=== PATIENT | female | born 1955 | race Caucasian/White ===

== ENCOUNTER → 2018-06-19 | Outpatient (CLI) | payer OTHER | END | disposition home or self-care (01) | LOC: LAB SHORT 14:30 → LAB 14:30 | DX: N39.0 Urinary tract infection, site not specified (principal) | CPT/HCPCS: 87077; 87086; 87186 ==

== ENCOUNTER 2018-08-11 09:18 | Emergency (ER) | payer OTHER ==
[~2018-08-11] VITALS: Ht 170.2 cm; Wt 72.6 kg
[2018-08-11] MEDS ORDERED: GLIM4 PO (09:43)
[2018-08-11] MEDS ORDERED: METF500C PO (09:43)
[2018-08-11] MEDS ORDERED: PRAV20 PO (09:43)
[2018-08-11] MEDS ORDERED: DIAZ10 PO (09:44)
[2018-08-11] MEDS ORDERED: TRIM100 PO (09:44)
[2018-08-11] MEDS ORDERED: INSULANPEN SC (09:44)
== END 2018-08-11 11:18 | disposition home or self-care (01) ==
LOC: ER 09:18
DX: R29.898 Other symptoms and signs involving the musculoskeletal system (principal); Z79.899 Other long term (current) drug therapy; Z79.4 Long term (current) use of insulin
CPT/HCPCS: 36415; 96360; 99283-25; J7030

== ENCOUNTER → 2019-05-17 | Outpatient (CLI) | payer OTHER ==
[~2019-05-17] MED LIST: DIAZ10 PO; GLIM4 PO; INSULANPEN SC; METF500C PO; PRAV20 PO; TRIM100 PO
[2019-05-17 16:32] LABS: Appearance, Urine Hazy (Clear); Bilirubin, Urine Neg (Neg); Blood, Urine 2+ (Neg); Color, Urine Yellow (P-Yellow); Glucose Qualitative, Urine Neg (Neg); Ketones, Urine 3+ (Neg); Leukocyte Esterase, Urine 3+ (Neg); Nitrite, Urine Neg (Neg); Protein, Urine 1+ (Neg); Specific Gravity, Urine 1.025 (1.003-1.022); Urobilinogen, Urine NORM (Normal)
[2019-05-17 16:56] LABS: White Blood Cells, Urine 50-100 /hpf (0-5)
[2019-05-17 16:58] LABS: Bacteria Mod /hpf; Red Blood Cells, Urine Not Seen /hpf (0-2); Squamous Epithelial Cells Few /hpf (Few); Yeast/Fungi Urine Many /hpf
== END | disposition home or self-care (01) ==
LOC: LAB SHORT 13:00 → OLS 13:00
PROVIDERS: Family Medicine
DX: R39.15 Urgency of urination (principal)
CPT/HCPCS: 81001; 87086; 87106

== ENCOUNTER 2019-06-07 09:23 | Emergency (ER) | payer OTHER ==
[~2019-06-07] VITALS: Ht 170.2 cm; Wt 68.0 kg
[2019-06-07 09:50] LABS: BASOPHILS ABSOLUTE AUTO 0.03 K/mm3 (0.00-0.23); BASOPHILS PERCENT AUTO 1 % (0-2); EOSINOPHILS ABSOLUTE AUTO 0.14 K/mm3 (0.00-0.68); EOSINOPHILS PERCENT AUTO 4 % (0-6); Hematocrit 34.8 % (33.0-51.0); Hemoglobin 11.8 g/dL (11.5-16.0); IMMATURE GRAN ABSOLUTE AUTO 0.01 K/mm3 (0.00-0.10); IMMATURE GRAN PERCENT AUTO 0 % (0-1); LYMPHOCYTES ABSOLUTE AUTO 1.96 K/mm3 (0.84-5.20); LYMPHOCYTES PERCENT AUTO 50 % (21-46); MONOCYTES ABSOLUTE AUTO 0.23 K/mm3 (0.16-1.47); MONOCYTES PERCENT AUTO 6 % (4-13); Mean Corpuscular HGB 33.4 pg (26.0-34.0); Mean Corpuscular HGB Conc 33.9 g/dL (31.5-36.5); Mean Corpuscular Volume 99 fL (80-100); Mean Platelet Volume 9.8 fL (9.1-12.4); NEUTROPHILS ABSOLUTE AUTO 1.54 K/mm3 (1.96-9.15); NEUTROPHILS PERCENT AUTO 39 % (41-73); Platelet Count 281 K/mm3 (150-400); RDW Coefficient Variation 12.8 % (11.7-14.2); RDW Standard Deviation 45.9 fL (35.1-46.3); Red Blood Cell Count 3.53 M/mm3 (3.80-5.20); White Blood Cell Count 3.91 K/mm3 (4.00-11.30)
[2019-06-07 10:00] LABS: Alanine Aminotransfer (ALT/SGP 10 U/L (12-78); Albumin, Blood 3.6 g/dL (3.4-5.0); Albumin/Globulin Ratio 1.3 (0.8-1.8); Alk Phos 92 U/L (50-136); Anion Gap 8 mmol/L (6-16); Aspartate Aminotrans (AST/SGOT 18 U/L (12-37); Bilirubin, Total 0.7 mg/dL (0.1-1.0); Blood Urea Nitrogen 10 mg/dL (8-24); Bun/Creatinine Ratio 15.6 (12.0-20.0); CO2, Blood 27 mmol/L (21-32); Calcium, Blood 8.4 mg/dL (8.5-10.1); Chloride, Blood 96 mmol/L (98-108); Creatinine, Blood 0.64 mg/dL (0.40-1.00); Globulin, Blood 2.7 g/dL (2.2-4.0); Glomerular Filtration Rate >60 (60-); Glucose, Blood 167 mg/dL (70-99); Potassium, Blood 3.5 mmol/L (3.5-5.5); Sodium, Blood 131 mmol/L (136-145); Total Protein, Blood 6.3 g/dL (6.4-8.2)
== END 2019-06-07 12:27 | disposition home or self-care (01) ==
LOC: ER 09:23
PROVIDERS: Emergency Medicine
DX: E11.9 Type 2 diabetes mellitus without complications (principal); G20 Parkinson's disease; R55 Syncope and collapse; Z87.440 Personal history of urinary (tract) infections; Z88.5 Allergy status to narcotic agent; Z79.899 Other long term (current) drug therapy; Z79.4 Long term (current) use of insulin
CPT/HCPCS: 36415; 71045; 80053; 85025; 93005; 93010; 96360; 96361; 99284-25; J7030

== ENCOUNTER → 2019-07-31 | Outpatient (CLI) | payer OTHER ==
[2019-07-31 11:23] LABS: Appearance, Urine Clear (Clear); Bilirubin, Urine Neg (Neg); Blood, Urine Neg (Neg); Color, Urine Yellow (P-Yellow); Glucose Qualitative, Urine 1+ (Neg); Ketones, Urine 3+ (Neg); Leukocyte Esterase, Urine 1+ (Neg); Nitrite, Urine Neg (Neg); Protein, Urine 1+ (Neg); Urobilinogen, Urine 1+ (Normal)
[2019-07-31 11:37] LABS: Bacteria Few /hpf; Red Blood Cells, Urine 0-2 /hpf (0-2); Squamous Epithelial Cells Rare /hpf (Few)
[2019-07-31 11:38] LABS: Mucus Light (0-Heavy); Transitional Epithelial Cells Rare /hpf (0-Rare)
== END | disposition home or self-care (01) ==
LOC: LAB SHORT 10:15 → OLS 10:15 → LAB FUT 07-28 17:15
PROVIDERS: Family Medicine
DX: R33.9 Retention of urine, unspecified (principal)
CPT/HCPCS: 81001; 87077; 87086; 87186

== ENCOUNTER 2021-01-01 07:12 | Day surgery (SDC) | payer OTHER ==
[~2021-01-01] VITALS: Ht 170.2 cm; Wt 58.3 kg
[~2021-01-01 07:12] MED LIST changes: +CARBIDOPA LEVO
--- NOTE | 2021-01-01 07:26 | NUR ---
01/01/21 0726 Anayeli Milton CHARTED BY EDILIA MCNALLY RN
[2021-01-07] MEDS ORDERED: Doxycycline Mo100 M1 PO (08:12)
[2021-01-07] MEDS ORDERED: FLUDROCORTISON0.1 M1 PO (08:12)
[2021-01-07] MEDS ORDERED: ATOR40TA PO (08:13)
[2021-01-07] MEDS ORDERED: CARBIDOPA LEVO PO (08:14)
[2021-01-07] MEDS ORDERED: GABA300 PO (08:15)
[2021-01-07] MEDS ORDERED: INSULANI (08:15)
[2021-01-07] MEDS ORDERED: METF500 PO (08:16)
== END 2021-01-01 09:09 | disposition home or self-care (01) ==
LOC: ORSCSDS 07:12
PROVIDERS: Ophthalmology
PROC: 08RK3JZ Replacement of Left Lens with Synthetic Substitute, Percutaneous Approach (ICD-10-PCS; principal; 2021-01-01 08:30)
DX: H25.12 Age-related nuclear cataract, left eye (principal); I10 Essential (primary) hypertension; E78.5 Hyperlipidemia, unspecified; E11.9 Type 2 diabetes mellitus without complications; G20 Parkinson's disease; Z79.4 Long term (current) use of insulin; Z79.899 Other long term (current) drug therapy
CPT/HCPCS: 82947; A9270; J2001; J2250; J3010; J3301; J7040; V2632

== ENCOUNTER 2021-01-15 06:47 | Day surgery (SDC) | payer OTHER ==
[~2021-01-15] VITALS: Ht 170.2 cm; Wt 58.5 kg
[~2021-01-15 06:47] MED LIST changes: +ATOR40TA PO; +CARBIDOPA LEVO PO; +Doxycycline Mo100 M1 PO; +FLUDROCORTISON0.1 M1 PO; +GABA300 PO; +INSULANI; +METF500 PO
--- NOTE | 2021-01-15 07:07 | NUR ---
01/15/21 0707 Anayeli Milton TETRACAINE DROP PLACED IN RIGHT EYE BY [facility].TMG AT 0707.
== END 2021-01-15 08:49 | disposition home or self-care (01) ==
LOC: ORSCSDS 06:47
PROVIDERS: Ophthalmology
PROC: 08RJ3JZ Replacement of Right Lens with Synthetic Substitute, Percutaneous Approach (ICD-10-PCS; principal; 2021-01-15 08:00)
DX: H25.11 Age-related nuclear cataract, right eye (principal); E11.9 Type 2 diabetes mellitus without complications; G20 Parkinson's disease; Z79.4 Long term (current) use of insulin; Z79.899 Other long term (current) drug therapy
CPT/HCPCS: 82947; J2001; J2250; J3010; J3301; J7040; V2632

== ENCOUNTER → 2021-04-01 | Outpatient (CLI) | payer OTHER ==
[2021-04-02 09:58] LABS: Stool Occult Bld Immuno 1 Positive (NEGATIVE)
== END | disposition home or self-care (01) ==
LOC: LAB 13:00 → LAB SHORT 13:00
PROVIDERS: Family Medicine
DX: Z12.11 Encounter for screening for malignant neoplasm of colon (principal)
CPT/HCPCS: 82274

== ENCOUNTER 2021-05-18 07:18 | Day surgery (SDC) | payer OTHER ==
[~2021-05-18] VITALS: Ht 167.6 cm; Wt 56.2 kg
--- NOTE | 2021-05-18 10:41 | NUR ---
05/18/[address] REQUESTED FOR PT'S TO COME BACK TO ROOM SO HE COULD SPEAK TO BOTH OF THEM. DOUGLAS TO ROOM, SPOKE TO BOTH PT AND . QUESTIONS ANSWERED, DISCHARGE INSTRUCTIONS REVIEWED WITH PT AND . NO FURTHER QUESTIONS. IV REMOVED. PT DISCHARGED VIA WC TO WAITING CAR.
== END 2021-05-18 10:12 | disposition home or self-care (01) ==
LOC: ORSCSDS 07:18
PROVIDERS: Student in an Organized Health Care Education/Training Program
PROC: 0DBP8ZX Excision of Rectum, Via Natural or Artificial Opening Endoscopic, Diagnostic (ICD-10-PCS; principal; 2021-05-18 08:45)
PROC: 0DB98ZX Excision of Duodenum, Via Natural or Artificial Opening Endoscopic, Diagnostic (ICD-10-PCS; principal; 2021-05-18 08:45)
PROC: 0DB48ZX Excision of Esophagogastric Junction, Via Natural or Artificial Opening Endoscopic, Diagnostic (ICD-10-PCS; principal; 2021-05-18 08:45)
PROC: 0DBN8ZX Excision of Sigmoid Colon, Via Natural or Artificial Opening Endoscopic, Diagnostic (ICD-10-PCS; principal; 2021-05-18 08:45)
PROC: 0DB78ZX Excision of Stomach, Pylorus, Via Natural or Artificial Opening Endoscopic, Diagnostic (ICD-10-PCS; principal; 2021-05-18 08:45)
PROC: 3E0H8KZ Introduction of Other Diagnostic Substance into Lower GI, Via Natural or Artificial Opening Endoscopic (ICD-10-PCS; principal; 2021-05-18 08:45)
DX: K92.1 Melena (principal); D50.9 Iron deficiency anemia, unspecified; C20 Malignant neoplasm of rectum; D12.5 Benign neoplasm of sigmoid colon; K31.7 Polyp of stomach and duodenum; K29.70 Gastritis, unspecified, without bleeding; K64.4 Residual hemorrhoidal skin tags; E11.9 Type 2 diabetes mellitus without complications; G20 Parkinson's disease; H81.12 Benign paroxysmal vertigo, left ear; E78.5 Hyperlipidemia, unspecified; Z79.84 Long term (current) use of oral hypoglycemic drugs; Z79.4 Long term (current) use of insulin; Z79.899 Other long term (current) drug therapy
CPT/HCPCS: 82947; 88305; 88313; 88342; J2704; J7120

== ENCOUNTER 2021-07-20 11:12 | Emergency (ER) | payer OTHER ==
[~2021-07-20] VITALS: Ht 167.6 cm; Wt 47.6 kg
[2021-07-20] MEDS ORDERED: CARBLEV25 SL (12:17)
[2021-07-20] MEDS ORDERED: Aspir 8181 MG PO (12:18)
[2021-07-20 12:21] LABS: BASOPHILS ABSOLUTE AUTO 0.06 K/mm3 (0.00-0.23); BASOPHILS PERCENT AUTO 1 % (0-2); EOSINOPHILS ABSOLUTE AUTO 0.06 K/mm3 (0.00-0.68); EOSINOPHILS PERCENT AUTO 1 % (0-6); Hematocrit 39.9 % (33.0-51.0); Hemoglobin 13.2 g/dL (11.5-16.0); IMMATURE GRAN ABSOLUTE AUTO 0.03 K/mm3 (0.00-0.10); IMMATURE GRAN PERCENT AUTO 1 % (0-1); LYMPHOCYTES ABSOLUTE AUTO 1.58 K/mm3 (0.84-5.20); LYMPHOCYTES PERCENT AUTO 24 % (21-46); MONOCYTES ABSOLUTE AUTO 0.39 K/mm3 (0.16-1.47); MONOCYTES PERCENT AUTO 6 % (4-13); Mean Corpuscular HGB 27.4 pg (26.0-34.0); Mean Corpuscular HGB Conc 33.1 g/dL (31.5-36.5); Mean Corpuscular Volume 83 fL (80-100); Mean Platelet Volume 9.3 fL (9.1-12.4); NEUTROPHILS ABSOLUTE AUTO 4.38 K/mm3 (1.96-9.15); NEUTROPHILS PERCENT AUTO 67 % (41-73); Platelet Count 404 K/mm3 (150-400); RDW Coefficient Variation 14.1 % (11.7-14.2); RDW Standard Deviation 42.8 fL (35.1-46.3); Red Blood Cell Count 4.81 M/mm3 (3.80-5.20)
[2021-07-20 12:48] LABS: Alanine Aminotransfer (ALT/SGP 10 U/L (12-78); Albumin, Blood 4.1 g/dL (3.4-5.0); Alk Phos 116 U/L (50-136); Anion Gap 12 mmol/L (6-16); Aspartate Aminotrans (AST/SGOT 18 U/L (12-37); Bilirubin, Total 0.8 mg/dL (0.1-1.0); Blood Urea Nitrogen 30 mg/dL (8-24); Bun/Creatinine Ratio 35.6 (12.0-20.0); CO2, Blood 20 mmol/L (21-32); Calcium, Blood 9.9 mg/dL (8.5-10.1); Chloride, Blood 100 mmol/L (98-108); Creatinine, Blood 0.84 mg/dL (0.40-1.00); Globulin, Blood 4.2 g/dL (2.2-4.0); Glomerular Filtration Rate >60 (60-); Glucose, Blood 212 mg/dL (70-99); Potassium, Blood 4.3 mmol/L (3.5-5.5); Sodium, Blood 132 mmol/L (136-145); Total Protein, Blood 8.3 g/dL (6.4-8.2); Troponin I <0.015 ng/mL (0.000-0.040)
== END 2021-07-20 14:48 | disposition home or self-care (01) ==
LOC: ER 11:12
PROVIDERS: Student in an Organized Health Care Education/Training Program
DX: E86.0 Dehydration (principal); R06.00 Dyspnea, unspecified; I95.1 Orthostatic hypotension; Z88.5 Allergy status to narcotic agent; Z79.84 Long term (current) use of oral hypoglycemic drugs; Z79.82 Long term (current) use of aspirin; Z79.4 Long term (current) use of insulin; Z79.899 Other long term (current) drug therapy; E11.9 Type 2 diabetes mellitus without complications; G20 Parkinson's disease; Z90.49 Acquired absence of other specified parts of digestive tract
CPT/HCPCS: 36415; 71045; 80053; 84484; 85025; 93005; 93010; 99285-25

== ENCOUNTER → 2021-09-15 | Outpatient (CLI) | payer OTHER ==
[~2021-09-15] MED LIST changes: +Aspir 8181 MG PO; +CARBLEV25 SL; +FOSAMAX70 MG PO; +MIDO5 PO
[2021-09-15 12:11] LABS: Microalb/Creat Ratio UR, Rand Unable to Calculate mg/g (0.000-30.000); Microalbumin, Random Urine <5.000 mg/L (0.000-20.000)
== END | disposition home or self-care (01) ==
LOC: LAB SHORT 04:30 → LAB 04:30
PROVIDERS: Family Medicine
DX: E11.9 Type 2 diabetes mellitus without complications (principal); E78.5 Hyperlipidemia, unspecified; D50.9 Iron deficiency anemia, unspecified
CPT/HCPCS: 82043; 82570

== ENCOUNTER 2021-09-17 13:54 | Inpatient (IN) | payer OTHER ==
[~2021-09-17] VITALS: Ht 167.6 cm; Wt 57.1 kg
[~2021-09-17 13:54] MED LIST changes: -FOSAMAX70 MG PO; -MIDO5 PO
[2021-09-17 14:35] LABS: BASOPHILS ABSOLUTE AUTO 0.02 K/mm3 (0.00-0.23); BASOPHILS PERCENT AUTO 0 % (0-2); EOSINOPHILS ABSOLUTE AUTO 0.02 K/mm3 (0.00-0.68); EOSINOPHILS PERCENT AUTO 0 % (0-6); Hematocrit 32.3 % (33.0-51.0); Hemoglobin 10.3 g/dL (11.5-16.0); IMMATURE GRAN ABSOLUTE AUTO 0.02 K/mm3 (0.00-0.10); IMMATURE GRAN PERCENT AUTO 0 % (0-1); LYMPHOCYTES ABSOLUTE AUTO 1.27 K/mm3 (0.84-5.20); LYMPHOCYTES PERCENT AUTO 15 % (21-46); MONOCYTES ABSOLUTE AUTO 0.37 K/mm3 (0.16-1.47); MONOCYTES PERCENT AUTO 4 % (4-13); Mean Corpuscular HGB 26.5 pg (26.0-34.0); Mean Corpuscular HGB Conc 31.9 g/dL (31.5-36.5); Mean Corpuscular Volume 83 fL (80-100); Mean Platelet Volume 8.8 fL (9.1-12.4); NEUTROPHILS ABSOLUTE AUTO 6.67 K/mm3 (1.96-9.15); NEUTROPHILS PERCENT AUTO 80 % (41-73); Platelet Count 476 K/mm3 (150-400); RDW Coefficient Variation 13.2 % (11.7-14.2); RDW Standard Deviation 39.8 fL (35.1-46.3); Red Blood Cell Count 3.88 M/mm3 (3.80-5.20); White Blood Cell Count 8.37 K/mm3 (4.00-11.30)
[2021-09-17 14:51] LABS: Alanine Aminotransfer (ALT/SGP 8 U/L (12-78); Albumin, Blood 3.8 g/dL (3.4-5.0); Albumin/Globulin Ratio 1.1 (0.8-1.8); Alk Phos 64 U/L (50-136); Anion Gap 9 mmol/L (6-16); Aspartate Aminotrans (AST/SGOT 10 U/L (12-37); Bilirubin, Total 0.6 mg/dL (0.1-1.0); Blood Urea Nitrogen 22 mg/dL (8-24); Bun/Creatinine Ratio 43.3 (12.0-20.0); CO2, Blood 23 mmol/L (21-32); Calcium, Blood 8.9 mg/dL (8.5-10.1); Chloride, Blood 101 mmol/L (98-108); Creatinine, Blood 0.51 mg/dL (0.40-1.00); Globulin, Blood 3.5 g/dL (2.2-4.0); Glomerular Filtration Rate >60 (60-); Glucose, Blood 267 mg/dL (70-99); Potassium, Blood 3.6 mmol/L (3.5-5.5); Sodium, Blood 133 mmol/L (136-145); Total Protein, Blood 7.3 g/dL (6.4-8.2)
[2021-09-17] MEDS ORDERED: MIDO5 PO (15:20)
[2021-09-17] MEDS ORDERED: FOSAMAX70 MG PO (15:22)
[2021-09-17 16:48] LABS: Source, Urine Clean Catch
[2021-09-17 17:17] LABS: Appearance, Urine Clear (Clear); Bilirubin, Urine Neg (Neg); Blood, Urine Neg (Neg); Color, Urine Yellow (P-Yellow); Glucose Qualitative, Urine 3+ (Neg); Ketones, Urine 3+ (Neg); Leukocyte Esterase, Urine Neg (Neg); Nitrite, Urine Neg (Neg); Protein, Urine 1+ (Neg); Urobilinogen, Urine NORM (Normal)
[2021-09-18 05:15] LABS: BASOPHILS ABSOLUTE AUTO 0.02 K/mm3 (0.00-0.23); BASOPHILS PERCENT AUTO 0 % (0-2); EOSINOPHILS PERCENT AUTO 0 % (0-6); Hematocrit 28.5 % (33.0-51.0); IMMATURE GRAN ABSOLUTE AUTO 0.03 K/mm3 (0.00-0.10); IMMATURE GRAN PERCENT AUTO 0 % (0-1); LYMPHOCYTES ABSOLUTE AUTO 1.17 K/mm3 (0.84-5.20); LYMPHOCYTES PERCENT AUTO 8 % (21-46); MONOCYTES ABSOLUTE AUTO 1.11 K/mm3 (0.16-1.47); MONOCYTES PERCENT AUTO 7 % (4-13); Mean Corpuscular HGB 26.3 pg (26.0-34.0); Mean Corpuscular HGB Conc 31.6 g/dL (31.5-36.5); Mean Corpuscular Volume 83 fL (80-100); Mean Platelet Volume 9.1 fL (9.1-12.4); NEUTROPHILS ABSOLUTE AUTO 12.98 K/mm3 (1.96-9.15); NEUTROPHILS PERCENT AUTO 85 % (41-73); Platelet Count 460 K/mm3 (150-400); RDW Coefficient Variation 13.2 % (11.7-14.2); RDW Standard Deviation 40.4 fL (35.1-46.3); Red Blood Cell Count 3.42 M/mm3 (3.80-5.20); White Blood Cell Count 15.31 K/mm3 (4.00-11.30)
[2021-09-18 05:51] LABS: Anion Gap 9 mmol/L (6-16); Blood Urea Nitrogen 30 mg/dL (8-24); Bun/Creatinine Ratio 59.1 (12.0-20.0); CO2, Blood 21 mmol/L (21-32); Calcium, Blood 7.8 mg/dL (8.5-10.1); Chloride, Blood 106 mmol/L (98-108); Creatinine, Blood 0.51 mg/dL (0.40-1.00); Glomerular Filtration Rate >60 (60-); Glucose, Blood 313 mg/dL (70-99); Potassium, Blood 4.2 mmol/L (3.5-5.5); Sodium, Blood 136 mmol/L (136-145)
--- NOTE | 2021-09-18 05:59 | NUR ---
ADMISSION NOTE/SHIFT SUMMARY PATIENT ADMITTED IN ROOM 325 AOX4 ABLE TO ANSWER ALL QUESTION APPROPRIATE DX OF ABD PAIN ABDOMINAL ASSESSMENT SLIGHTLY DISTENDED TENDER TO TOUCH.C/O PAIN 9/10 PRN ADM ORDERED WITH RELIEF.Q 6 HRS BLOOD SUGAR CHECKS.PT ON TELE PVC RUNNING AT 120 DOCTOR MADE AWARE NO NEW ORDERS AT THIS TIME.NPO NS RUNNING AT 75ML/HR.NEED ASSIST X1 WITH TRANSFER NO NAUSEA OR VOMMINTING IN THIS SHIFT.
--- NOTE | 2021-09-18 07:56 | NUR ---
NESTOR recvd handoff of patient care from NESTOR Fallon Patient was awake in bed. RN did give her 7am meds and other meds per patient requests. No distress noted.
--- NOTE | 2021-09-18 17:04 | NUR ---
Patient was alert and orient. She complained of abdominal pain and stated that she had to 'finally go' meaning have a BM. Patient had a large BM and it was formed and bloody. Patient informed the provider and she asked to guiac the stool. Patient continued to have runny loose bloody stools all on the bed. THis RN sent the stool to the lab at 1700. Vitals were done and staff noticed that her fingers and toes were bluish in color. RN notified CN and immediately she called EVENT SALES REPRESENTATIVE.
[2021-09-18 17:29] LABS: Hematocrit 31.5 % (33.0-51.0); Hemoglobin 9.8 g/dL (11.5-16.0)
[2021-09-18 17:41] LABS: PCO2 Arterial 27.6 mmHg (35-45); PO2 Arterial 407 mmHg (80-100); pH Blood Arterial 7.41 (7.35-7.45)
[2021-09-18 18:44] LABS: Influenza A, PCR NEGATIVE (NEGATIVE); Influenza B, PCR NEGATIVE (NEGATIVE); Resp Syncytial Virus, PCR NEGATIVE (NEGATIVE); SARS-Cov-2 (COVID-19) PCR, MMC NEGATIVE (NEGATIVE)
--- NOTE | 2021-09-18 18:48 | NUR ---
PT ARRIVAL TO ICU.... PT ARRIVED TO ICU AT 1702 IN UNSTABLE CONDITION. THE PT WAS HOOKED UP TO THE ZOLL, SHE WAS HYPOTENSIVE WITH SBPs IN THE 60'S, THE PT WAS ON A NON-REBREATHER AT 15L WITH O2 SATS UNAVAILABLE D/T POOR PERFUSION, THE PT'S FACE WAS WHITE AND HER LIPS WERE CARLISLE, HER FINGERS AND TOES DUSKY, SHE WAS COOL AND CLAMMY TO THE TOUCH, THE PT WAS RESPONSIVE BUT WEAK. THE PT'S IV IN THE RIGHT ARM INFILTRATED AND SHE HAD NO OTHER ACCESS. THE CHARGE NURSE WAS UNABLE TO OBTAINE ACCESS AND A RIGHT IJ CENTRAL LINE WAS PLACED BY DR. HOOKER. THE PT HAD 3 LARGE LIQUID RED STOOLS. ONCE THE CENTRAL LINE WAS PLACED A BOLUS OF NS WAS STARTED PER DR. HOOKER. 2 UNITS OF PRBCs WERE ORDERS AND OBTAINED, ONE WAS STARTED WHILE THE PT WAS IN THE ROOM, THE SECOND UNIT WAS TAKEN TO THE SR VICE PRESIDENT WITH THE SR VICE PRESIDENT RN. THE PT'S WAS BROUGHT TO THE BEDSIDE TO SIGN THE PROCEDURE CONSENT. THE PT WAS C/O OF 10/10 ABD PAIN FROM HER LOWER ABD TO HER NECK. THE PT'S ABD WAS HARD AND VERY PAINFUL TO THE TOUCH, NO BOWEL TONES NOTED BY THIS RN. ALL OF THE PT'S PO MEDICATIONS HELD BY THIS RN, THE PT'S 1800 INSULIN WAS ALSO HELD D/T THE SITUATION. THE PT LEFT FOR THE SR VICE PRESIDENT AT 1850. REPORT WILL BE GIVEN TO ONCOMING RN.
--- NOTE | 2021-09-18 19:10 | NUR ---
BLOOD TRANSFUSION STARTED IN ICU AND COMPLETED BY MORTGAGE LOAN OFFICER PERSONNEL; PLEASE SEE PAPER CHARTING
[2021-09-18 22:53] LABS: Hematocrit 35.2 % (33.0-51.0); Hemoglobin 11.6 g/dL (11.5-16.0)
[2021-09-18 23:03] LABS: Source, Urine Foley catheter
[2021-09-18 23:17] LABS: Appearance, Urine Clear (Clear); Bilirubin, Urine 1+ (Neg); Blood, Urine 1+ (Neg); Color, Urine Yellow (P-Yellow); Glucose Qualitative, Urine 3+ (Neg); Ketones, Urine 1+ (Neg); Leukocyte Esterase, Urine Neg (Neg); Nitrite, Urine Neg (Neg); Protein, Urine 2+ (Neg); Specific Gravity, Urine 1.015 (1.003-1.022); Urobilinogen, Urine NORM (Normal)
[2021-09-18 23:18] LABS: Amorphous Light (0-Heavy); Bacteria Rare /hpf; Red Blood Cells, Urine 0-2 /hpf (0-2); Squamous Epithelial Cells Not Seen /hpf (Few); White Blood Cells, Urine Rare /hpf (0-5)
[2021-09-19 03:26] LABS: Hematocrit 33.1 % (33.0-51.0); Mean Corpuscular HGB 27.6 pg (26.0-34.0); Mean Corpuscular HGB Conc 33.2 g/dL (31.5-36.5); Mean Corpuscular Volume 83 fL (80-100); Platelet Count 291 K/mm3 (150-400); RDW Coefficient Variation 13.8 % (11.7-14.2); RDW Standard Deviation 42.1 fL (35.1-46.3); Red Blood Cell Count 3.99 M/mm3 (3.80-5.20); White Blood Cell Count 6.96 K/mm3 (4.00-11.30)
[2021-09-19 03:45] LABS: Albumin, Blood 2.7 g/dL (3.4-5.0); Bilirubin, Total 0.7 mg/dL (0.1-1.0); Bun/Creatinine Ratio 50.1 (12.0-20.0); Calcium, Blood 7.4 mg/dL (8.5-10.1); Creatinine, Blood 0.98 mg/dL (0.40-1.00); Globulin, Blood 2.8 g/dL (2.2-4.0); Phosphorus, Blood 3.4 mg/dL (2.5-4.9); Potassium, Blood 2.9 mmol/L (3.5-5.5); Total Protein, Blood 5.5 g/dL (6.4-8.2)
[2021-09-19 03:57] LABS: BAND PERCENT MAN 44 % (0-8); BASOPHILS PERCENT MAN 0 % (0-2); EOSINOPHILS PERCENT MAN 0 % (0-6); LYMPHOCYTES ABSOLUTE MAN 0.34 K/mm3 (0.84-5.20); LYMPHOCYTES PERCENT MAN 5 % (21-46); METAMYELOCYTE ABSOLUTE MAN 0.06 K/mm3 (0.00-0.00); METAMYELOCYTE PERCENT MAN 1 % (0-0); MONOCYTES ABSOLUTE MAN 0.41 K/mm3 (0.16-1.47); MONOCYTES PERCENT MAN 6 % (4-13); MYELOCYTE ABSOLUTE MAN 0.06 K/mm3 (0.00-0.00); MYELOCYTE PERCENT MAN 1 % (0-0); NEUTROPHILS ABSOLUTE MAN 6.05 K/mm3 (1.96-9.15); SEG NEUTROPHILS PERCENT MAN 43 % (41-73); TOTAL CELLS COUNTED 100
--- NOTE | 2021-09-19 05:49 | NUR ---
Recieved back from matlab developer. groin site negative through out night. Rectal tube placed due to watery maroon colored stools. Dr Blackwell in at beginning of shift to talk with patient, no bleed found. CT ordered and completed. Dr Valle in room to discuss treatment plan with patient. discussed possible transfer to [place] to see surgeon that completed prior surgeries. CT results positive for bowel obstruction. report called to Dr Valle. Will keep patient NPO. Tavera placed due to urine retention. Dr Yee in room to see patient about possible colonoscopy. Due to bowel obstruction will hold off. Called and received order for pain meds due to not controlled by current pain med orders.
--- NOTE | 2021-09-19 06:30 | NUR ---
short runs of elevated heart rate reaching 170. EKG obtained notified Dr Valle of runs of SVT
[2021-09-19 07:09] LABS: Hematocrit 33.6 % (33.0-51.0); Hemoglobin 10.9 g/dL (11.5-16.0)
--- NOTE | 2021-09-19 07:51 | NUR ---
AM NOTE.... ASSUMED CARE OF PT AT 0700, THE PT IS IN SINUS TACH AND STARTED HAVING RUNS OF SVT/PAT UP TO THE 170'S, THE PT'S BP IS SOFT BUT STABLE WITH MAPS >65, EKG DONE. THE PT IS A&Ox4 BUT WEAK AND SLOW TO RESPOND. THE PT'S CHEEKS ARE FLUSHES BUT THE REST OF HER FACE IS PALE, THE PT'S EXTREMITIES ARE COOL AND PALE. PULSES ARE PALPABLE AT THIS TIME. THE PT CURRENTLY DENIES ANY N/V. RECTAL TUBE IN PLACE DRAINING MAROON/RED LIQUID STOOLS, 400MLS ARE IN THE BAG AT THE START OF THIS SHIFT, THIS WAS CHARTED. THE ABD HAS MILD DISTENTION, VERY HYPOACTIVE BOWEL TONES, THE PT'S ABD IS VERY TENDER TO THE SLIGHTEST TOUGH MORE SO ON THE LEFT THAN THE RIGHT PER THE PT. THE PT'S ABD IS SLIGHTLY FIRM TO PALPATION. THE PT IS C/O OF BEING "VERY THIRSTY" ORAL CARE PROVIDED BUT PT IS KEPT NPO. THE PT IS ON RA WITH O2 SATS >95% RR IS CURRENTLY AT 10 BREATHS PER MIN. PT'S CURRENT TEMP IS 99.9 PER ORAL. PROVIDER NOTIFIED OF THE CHANGES IN HER HR AND TEMP, NEW ORDERS OBTAINED FOR ALBUMIN 25G IV. WILL CONTINUE TO MONITOR.
--- NOTE | 2021-09-19 08:46 | NUR ---
PT UPDATE.... DR. JURADO AT THE BEDSIDE TO ASSESS THE PT, PER DR. JURADO HE WILL ATTEMPT TO TRANSFER THE PT UP TO [facility] WHERE SHE HAD HER FIRST ABD SURGERY. PT IS IN AGREEMENT WITH THIS PLAN. WILL CONTINUE TO MONITOR.
[2021-09-19 09:02] LABS: Hematocrit 31.7 % (33.0-51.0); Hemoglobin 10.2 g/dL (11.5-16.0)
--- NOTE | 2021-09-19 11:13 | NUR ---
PT UPDATE.... DURING PT'S RECTAL TUBE CARE THIS RN NOTED THE PT'S COCCXY HAD A RED BUT BLANCHABLE SPOT, A MEPILEX WAS PLACED OVER THE PT'S COXXCY. THE PT WAS EDUCATED ON PRESSURE ULCER PREVENTION AND Q2 TURNS. PRESENTLY THE PT HAS BEEN REFUSING TURNS D/T "BEING COMFORTABLE ON MY BACK." THIS RN WILL CONITNUE TO EDUCATE THE PT AND ENCOURAGE TURNS. THE PT'S WAS CALLED AND UPDATED ON HER CONDITION AND THE PLAN OF CARE, WE ARE CURRENTLY WAITING ON AN AVAILABLE BED UP IN [facility] TO TRANSFER HER OUT. VS STABLE AT THIS TIME. CALL LIGHT IN REACH WILL CONTINUE TO MONITOR.
--- NOTE | 2021-09-19 12:23 | NUR ---
PT UPDATE.... THIS RN NOTED THAT IF THE PT DOES ALLOW STAFF TO TURN HER OFF HER BACK SHE WILL WRIGGLE HERSELF BACK ON TO HER BACK SHORTLY AFTER STAFF LEAVE THE ROOM. THE PT WAS GIVEN A BEDBATH AND LINEN CHANGE, PRESSURE ULCER PREVENTION EDUCATION PROVIDED TO THE PT, THE PT VERBALIZED HER UNDERSTANDING. THE PT WAS C/O OF 10/10 ABD PAIN, THE PT WAS MEDICATED PER EMAR WITH 1MG IV DILAUDID, THE PT QUICKLY FELL ASLEEP AFTER THIS MEDICATION WAS GIVEN. THE PT CONTINUES TO HAVE A TMAX OF 100.3 AT THIS TIME. CALL LIGHT IN REACH WILL CONTINUE TO MONITOR.
--- NOTE | 2021-09-19 13:18 | NUR ---
PT UPDATE.... THE PT WAS GIVEN IV DILAUDID FOR HER ABD PAIN AT 1205 AT 1315 THE PT WENT INTO AN EPISODE OF SVT WITH HR UP TO THE 180'S-190'S, THE PT'S BP WAS STABLE DURING THIS EPISODE. THE PT HAD A SIMILAR EPISODE THIS MORNING AFTER SHE WAS GIVEN IV DIALUDID. PROVIDER WAS CALLED AND NOTIFIED, ORDERS OBTAINED TO D/C THE IV DILAUDID. WILL CONTINUE TO MONITOR.
[2021-09-19 13:24] LABS: Anion Gap 5 mmol/L (6-16); Blood Urea Nitrogen 42 mg/dL (8-24); Bun/Creatinine Ratio 55.1 (12.0-20.0); CO2, Blood 23 mmol/L (21-32); Calcium, Blood 7.3 mg/dL (8.5-10.1); Chloride, Blood 118 mmol/L (98-108); Creatinine, Blood 0.76 mg/dL (0.40-1.00); Glomerular Filtration Rate >60 (60-); Glucose, Blood 192 mg/dL (70-99); Potassium, Blood 3.3 mmol/L (3.5-5.5); Sodium, Blood 146 mmol/L (136-145)
[2021-09-19 13:32] LABS: Stool Occult Blood Guaiac 1 Pos (Neg)
[2021-09-19 14:31] LABS: Hemoglobin 8.8 g/dL (11.5-16.0)
--- NOTE | 2021-09-19 18:51 | NUR ---
SHIFT SUMMARY.... NO ACUTE NEGATIVE CHANGES SINCE PREVIOUS NOTES, THE PT'S HR HAS BEEN IN THE 120'S SINCE APROX 1400. THE PT'S BP HAS BEEN STABLE T/O THIS SHIFT. THE PT HAS BEEN TURNED Q2 HRS BUT HAS SHIFTED HERSELF BACK SUPINE MOST OF THE TIME. THE PT'S RECTAL TUBE IS PATENT AND DRAINED 1000MLS OF MAROON/BROWN LIQUID THIS SHIFT. THE PT HAS BEEN C/O OF 10/10 ABD PAIN SEVERAL TIMES THIS SHIFT AND HAS BEEN MEDICATED PER EMAR. THE PT'S WAS UPDATED SEVERAL TIMES THIS SHIFT. THE PT'S HODGES IS PATENT AND DRAINING TO GRAVITY. ORAL CARE DONE SEVERAL TIMES THIS SHIFT. STILL WAITING ON BED AVAILABILITY FOR [facility] TRANSFER TO [facility]. CALL LIGHT IN REACH WILL CONTINUE TO MONITOR.
[2021-09-19 22:15] LABS: Hemoglobin 8.8 g/dL (11.5-16.0); Mean Corpuscular HGB 27.3 pg (26.0-34.0); Mean Corpuscular HGB Conc 32.6 g/dL (31.5-36.5); Mean Corpuscular Volume 84 fL (80-100); Mean Platelet Volume 9.4 fL (9.1-12.4); Platelet Count 221 K/mm3 (150-400); RDW Coefficient Variation 14.3 % (11.7-14.2); RDW Standard Deviation 43.9 fL (35.1-46.3); Red Blood Cell Count 3.22 M/mm3 (3.80-5.20); White Blood Cell Count 5.69 K/mm3 (4.00-11.30)
[2021-09-19 22:36] LABS: BAND PERCENT MAN 38 % (0-8); BASOPHILS PERCENT MAN 0 % (0-2); EOSINOPHILS PERCENT MAN 0 % (0-6); LYMPHOCYTES ABSOLUTE MAN 0.45 K/mm3 (0.84-5.20); LYMPHOCYTES PERCENT MAN 8 % (21-46); METAMYELOCYTE ABSOLUTE MAN 0.05 K/mm3 (0.00-0.00); METAMYELOCYTE PERCENT MAN 1 % (0-0); MONOCYTES ABSOLUTE MAN 0.28 K/mm3 (0.16-1.47); MONOCYTES PERCENT MAN 5 % (4-13); NEUTROPHILS ABSOLUTE MAN 4.89 K/mm3 (1.96-9.15); SEG NEUTROPHILS PERCENT MAN 48 % (41-73); TOTAL CELLS COUNTED 100
[2021-09-20 04:26] LABS: Hematocrit 28.1 % (33.0-51.0); Mean Corpuscular HGB 26.9 pg (26.0-34.0); Mean Corpuscular Volume 84 fL (80-100); Mean Platelet Volume 9.6 fL (9.1-12.4); Platelet Count 218 K/mm3 (150-400); RDW Coefficient Variation 14.4 % (11.7-14.2); RDW Standard Deviation 44.5 fL (35.1-46.3); Red Blood Cell Count 3.34 M/mm3 (3.80-5.20); White Blood Cell Count 6.05 K/mm3 (4.00-11.30)
[2021-09-20 04:42] LABS: Anion Gap 7 mmol/L (6-16); Blood Urea Nitrogen 28 mg/dL (8-24); Bun/Creatinine Ratio 43.3 (12.0-20.0); CO2, Blood 24 mmol/L (21-32); Calcium, Blood 7.3 mg/dL (8.5-10.1); Chloride, Blood 118 mmol/L (98-108); Creatinine, Blood 0.65 mg/dL (0.40-1.00); Glomerular Filtration Rate >60 (60-); Glucose, Blood 160 mg/dL (70-99); Phosphorus, Blood 2.4 mg/dL (2.5-4.9); Potassium, Blood 3.4 mmol/L (3.5-5.5); Sodium, Blood 149 mmol/L (136-145)
[2021-09-20 04:53] LABS: BAND PERCENT MAN 38 % (0-8); BASOPHILS PERCENT MAN 0 % (0-2); EOSINOPHILS ABSOLUTE MAN 0.06 K/mm3 (0.00-0.68); EOSINOPHILS PERCENT MAN 1 % (0-6); LYMPHOCYTES ABSOLUTE MAN 0.72 K/mm3 (0.84-5.20); LYMPHOCYTES PERCENT MAN 12 % (21-46); MONOCYTES ABSOLUTE MAN 0.24 K/mm3 (0.16-1.47); MONOCYTES PERCENT MAN 4 % (4-13); NEUTROPHILS ABSOLUTE MAN 5.02 K/mm3 (1.96-9.15); SEG NEUTROPHILS PERCENT MAN 45 % (41-73); TOTAL CELLS COUNTED 100
--- NOTE | 2021-09-20 06:11 | NUR ---
Decreased stool output through night. Only 200 ml out in rectal tube, stool continues to be watery brown with slight maroon color. Continues to have abd pain, rating at 10/10. Called for uncontrolled pain at beginning of shift, new dose/freq controlling pain better. Had more anxiety at beginning of shift, improved through night. Only slept for about 1 hour through night. Heart rate ST 105-114 with freq PACs, no further runs of SVT.
--- NOTE | 2021-09-20 07:30 | NUR ---
ASSUMED CARE: PT RESTING QUIETLY IN BED AT THIS TIME. SINUS TACH IN 1TEENS ON TELE. NS RUNNING THROUGH IV. NO ACUTE NEEDS OR CONCERNS AT THIS TIME.
[2021-09-20 16:39] LABS: Hematocrit 31.1 % (33.0-51.0); Hemoglobin 9.8 g/dL (11.5-16.0)
[2021-09-20 16:56] LABS: Anion Gap 8 mmol/L (6-16); Blood Urea Nitrogen 22 mg/dL (8-24); Bun/Creatinine Ratio 37.5 (12.0-20.0); CO2, Blood 22 mmol/L (21-32); Calcium, Blood 7.3 mg/dL (8.5-10.1); Chloride, Blood 114 mmol/L (98-108); Creatinine, Blood 0.59 mg/dL (0.40-1.00); Glomerular Filtration Rate >60 (60-); Glucose, Blood 208 mg/dL (70-99); Potassium, Blood 3.4 mmol/L (3.5-5.5); Sodium, Blood 144 mmol/L (136-145)
--- NOTE | 2021-09-20 18:03 | NUR ---
NURSE AT [facility] CALLED TO GET REPORT ON PT. AWARE THAT PT HAS BEEN ALERT AND ORIENTED BUT WEAK. NO APPARENT DEFICITS FROM CVA HISTORY. NO NG AT THIS TIME PER GI. RECTAL TUBE WITH MAROON STOOL. HODGES CATH WITH CLEAR YELLOW URINE. RIGHT GROIN SITE CLEAN AND DRY WITH MINIMAL BRUISING FROM IR STUDY. RN AWARE THAT DRESSING CAN BE REMOVED THIS EVENING PER DR HOOKER. PT STATES SHE WILL CALL HER ABOUT TRANSFER. TRANSFERRED VIA GURNEY BY EMS STAFF
== END 2021-09-20 18:00 | disposition short-term general hospital (02) | DRG 388 ==
LOC: ER 13:54 → ICUW 18:04 → MEDS 18:04 → ICUW 09-18 17:48
PROVIDERS: Internal Medicine; Internal Medicine Critical Care Medicine; Student in an Organized Health Care Education/Training Program; ADMIT Family Medicine
PROC: 02HV33Z Insertion of Infusion Device into Superior Vena Cava, Percutaneous Approach (ICD-10-PCS; principal; 2021-09-18)
PROC: B415ZZZ Fluoroscopy of Inferior Mesenteric Artery (ICD-10-PCS; 2021-09-18)
PROC: B414ZZZ Fluoroscopy of Superior Mesenteric Artery (ICD-10-PCS; 2021-09-18)
DX: K56.699 Other intestinal obstruction unspecified as to partial versus complete obstruction (principal); R57.8 Other shock; E87.1 Hypo-osmolality and hyponatremia; K92.1 Melena; Z20.822 Contact with and (suspected) exposure to COVID-19; G20 Parkinson's disease; F02.80 Dementia in other diseases classified elsewhere, unspecified severity, without behavioral disturbance, psychotic disturbance, mood disturbance, and anxiety; D75.839 Thrombocytosis, unspecified; I10 Essential (primary) hypertension; E11.9 Type 2 diabetes mellitus without complications; D69.6 Thrombocytopenia, unspecified; M54.9 Dorsalgia, unspecified; E87.6 Hypokalemia; Z98.1 Arthrodesis status; Z87.01 Personal history of pneumonia (recurrent); Z86.73 Personal history of transient ischemic attack (TIA), and cerebral infarction without residual deficits; Z90.89 Acquired absence of other organs; Z90.711 Acquired absence of uterus with remaining cervical stump; Z85.030 Personal history of malignant carcinoid tumor of large intestine; Z90.49 Acquired absence of other specified parts of digestive tract; Z93.3 Colostomy status; Z87.440 Personal history of urinary (tract) infections; Z79.899 Other long term (current) drug therapy; Z79.82 Long term (current) use of aspirin; Z79.84 Long term (current) use of oral hypoglycemic drugs; Z88.5 Allergy status to narcotic agent; Z87.891 Personal history of nicotine dependence
CPT/HCPCS: 0241U; 36245; 36415; 36430; 36600; 51702; 71045; 74018; 74177; 74250; 75726; 76937; 80048; 80053; 80069; 81001; 82272; 82803; 82947; 83605; 83690; 84100; 85014; 85018; 85025; 86850; 86900; 86901; 86923; 93005; 93010; 96374-59; 96375; 96376; 99285-25; A9270; C1751; C1760; C1769; C1887; C1894; C9113; J0780; J1170; J1644; J1815; J2270; J2405; J2543; J3010; J7030; J7042; J7050; J7060; P9016; P9046; Q9967

== ENCOUNTER → 2021-11-04 | Outpatient (CLI) | payer OTHER ==
[~2021-11-04] MED LIST changes: +FOSAMAX70 MG PO; +MIDO5 PO
[2021-11-05 11:49] LABS: Adenovirus F 40/41 Not Detected (NOT DETECT); Astrovirus Not Detected (NOT DETECT); Campylobacter Sp Not Detected (NOT DETECT); Cryptosporidium Not Detected (NOT DETECT); Cyclospora Cayetanensis Not Detected (NOT DETECT); E. Coli O157 Not Detected (NOT DETECT); Entamoeba Histolytica Not Detected (NOT DETECT); Enteroaggregative E. coli-EAEC Not Detected (NOT DETECT); Enteropathogenic E. coli-EPEC Not Detected (NOT DETECT); Enterotoxigenic E. coli-ETEC Not Detected (NOT DETECT); Giardia Lamblia Not Detected (NOT DETECT); Norovirus GI/GII Not Detected (NOT DETECT); Plesiomonas Shigelloides Not Detected (NOT DETECT); Rotavirus A Not Detected (NOT DETECT); Salmonella Sp Not Detected (NOT DETECT); Sapovirus Not Detected (NOT DETECT); Shiga Toxin-prod E. coli-STEC Not Detected (NOT DETECT); Shigella/Enteroin E. coli-EIEC Not Detected (NOT DETECT); Vibrio Cholerae Not Detected (NOT DETECT); Vibrio Sp Not Detected (NOT DETECT); Yersinia Enterocolitica Not Detected (NOT DETECT)
== END | disposition home or self-care (01) ==
LOC: LAB SHORT 16:45
PROVIDERS: Student in an Organized Health Care Education/Training Program
DX: R19.7 Diarrhea, unspecified (principal)
CPT/HCPCS: 0097U

== ENCOUNTER 2022-01-14 06:25 | Day surgery (SDC) | payer OTHER ==
[~2022-01-14] VITALS: Ht 167.6 cm; Wt 51.1 kg
== END 2022-01-14 08:55 | disposition home or self-care (01) ==
LOC: ORSCSDS 06:25
PROVIDERS: Student in an Organized Health Care Education/Training Program
PROC: 0DBP8ZX Excision of Rectum, Via Natural or Artificial Opening Endoscopic, Diagnostic (ICD-10-PCS; principal; 2022-01-14 08:00)
DX: Z85.048 Personal history of other malignant neoplasm of rectum, rectosigmoid junction, and anus (principal); Z86.010 Personal history of colon polyps; E11.9 Type 2 diabetes mellitus without complications; K62.4 Stenosis of anus and rectum; G20 Parkinson's disease; E78.5 Hyperlipidemia, unspecified; Z79.4 Long term (current) use of insulin; Z79.82 Long term (current) use of aspirin; Z79.899 Other long term (current) drug therapy
CPT/HCPCS: 82947; 88305; J2704; J7120

== ENCOUNTER → 2023-06-24 | Outpatient (CLI) | payer OTHER ==
[2023-06-24 19:17] LABS: Creatinine, Urine Random 74.8 mg/dL (27.00-270.00)
[2023-06-24 19:20] LABS: Microalb/Creat Ratio UR, Rand 22.727 mg/g (0.000-30.000)
== END ==
LOC: LAB 15:26 → LAB SHORT 15:26
PROVIDERS: Family Medicine
DX: E11.69 Type 2 diabetes mellitus with other specified complication (principal)
CPT/HCPCS: 82043; 82570